=== PATIENT | female | born 1960 ===

== ENCOUNTER 2017-12-19 07:02 | Emergency (ER) | payer SELFPAY ==
[2017-12-19 07:24] VITALS: BMI 26.5
--- NOTE | 2017-12-19 07:41 | ED PDOC ---
HPI: Skin/Bite Injury Time Seen by Provider: 12/19/17 07:14 Chief Complaint (Nursing): Chest Pain Chief Complaint (Provider): Rash History Per: Patient History/Exam Limitations: no limitations Onset/Duration Of Symptoms: Days Current Symptoms Are (Timing): Still Present Location Of Injury: Left: Chest Quality Of Symptoms: Painful Additional Complaint(s): 57 year old female with a past medical history of diabetes presents to the ED for an evaluation of painful rash on left side of the chest onset Monday. Reports the pain began one day prior. She denies having a fever. PMD: Non [facility] Provider Past Medical History Reviewed: Historical Data, Nursing Documentation, Vital Signs Vital Signs: Last Vital Signs Temp 97.6 F 12/19/17 07:44 Pulse 70 12/19/17 07:44 Resp 19 12/19/17 07:43 BP 170/80 H 12/19/17 07:44 Pulse Ox 98 12/19/17 07:43 - Medical History PMH: Diabetes, HTN - Family History Family History: States: Unknown Family Hx - Social History Current smoker - smoking cessation education provided: No Alcohol: None Drugs: Denies - Home Medications Home Medications: Ambulatory Orders Medication Instructions Recorded Hydrochlorothiazide [HCTZ] 1 tab PO DAILY 10/13/14 Losartan Potassium [Losartan 1 tab PO DAILY 10/13/14 Potassium] MetFORMIN [glucoPHAGE] 1 tab PO BID 10/13/14 Valacyclovir HCl [Valtrex] 1 gm PO TID #30 tablet 12/19/17 traMADol [Ultram] 50 mg PO Q8 #10 tab 12/19/17 - Allergies Allergies/Adverse Reactions: Allergies Allergy/AdvReac Type Severity Reaction Status Date / Time No Known Allergies Allergy Verified 10/13/14 08:10 Review of Systems ROS Statement: Except As Marked, All Systems Reviewed And Found Negative Constitutional: Negative for: Fever Skin: Positive for: Rash Psych: Negative for: Suicidal ideation (homicidal ideation) Physical Exam - Reviewed Nursing Documentation Reviewed: Yes Vital Signs Reviewed: Yes - Physical Exam Appears: Positive for: Non-toxic, No Acute Distress Head Exam: Positive for: ATRAUMATIC, NORMAL INSPECTION, NORMOCEPHALIC Skin: Positive for: Rash (erythematous vesicular rash at various stages on left side of chest, left breast, lateral chest and not across midline ) Eye Exam: Positive for: Normal appearance Cardiovascular/Chest: Positive for: Regular Rate, Rhythm. Negative for: Murmur Respiratory: Positive for: Normal Breath Sounds. Negative for: Decreased Breath Sounds, Wheezing, Respiratory Distress Neurologic/Psych: Positive for: Alert, Oriented (x3). Negative for: Motor/ Sensory Deficits - ECG Pulse Ox Interpretation: Normal Medical Decision Making Medical Decision Making: Time: 713 Initial Impression: rash Initial Plan: --Reevaluation Clinical Impression: shingles Upon provider evaluation patient is medically stable, and requires no further treatment in the ED at this time. Patient will be discharged with Ultram 50mg and Valtrex 1gm for shingles. Counseling was provided and all questions were answered regarding diagnosis and need for follow up with [facility]. There is agreement to discharge plan. Return if symptoms persist or worsen. Scribe Attestation: Documented by Jelly Krishna, acting as a scribe for Simon Rascon MD Provider Scribe Attestation: All medical record entries made by the Scribe were at my direction and personally dictated by me. I have reviewed the chart and agree that the record accurately reflects my personal performance of the history, physical exam, medical decision making, and the department course for this patient. I have also personally directed, reviewed, and agree with the discharge instructions and disposition. Disposition - Clinical Impression Clinical Impression: Shingles - Patient ED Disposition Is Patient to be Admitted: No - Disposition Referrals: [facility] [Outside] Disposition: Routine/Home Disposition Time: 07:45 Condition: FAIR Additional Instructions: SOFIE TINEO, thank you for letting us take care of you today. Your provider was Simon Rascon MD and you were treated for CHEST PAIN. The emergency medical care you received today was directed at your acute symptoms. If you were prescribed any medication, please fill it and take as directed. It may take several days for your symptoms to resolve. Return to the Emergency Department if your symptoms worsen, do not improve, or if you have any other problems. Please contact your doctor or call one of the physicians/clinics you have been referred to that are listed on the Patient Visit Information form that is included in your discharge packet. Bring any paperwork you were given at discharge with you along with any medications you are taking to your follow up visit. Our treatment cannot replace ongoing medical care by a primary care provider outside of the emergency department. Thank you for allowing the [facility] team to be part of your care today. If you had an X-Ray or CT scan: A Radiologist will review the ED reading if any change in treatment is needed we will contact you. If you had a blood, urine, or wound culture: It will take several days for the results, if any change in treatment is needed we will contact you. If you had an STI test: It will take 48 hours for the results. Please call after 1 week if you have not heard back. Prescriptions: traMADol [Ultram] 50 mg PO Q8 #10 tab Valacyclovir HCl [Valtrex] 1 gm PO TID #30 tablet Instructions: Shingles Forms: [employer] (Malagasy) Print Language: NEPALI
[2017-12-19 07:44] VITALS: BP 170/80; RESP 19; O2SAT 98
[2017-12-19 07:48] VITALS: PULSE 70; TEMP 97.6
== END 2017-12-19 07:45 | disposition home or self-care (01) ==
LOC: H.ER 07:02
DX: B02.9 Zoster without complications (principal); E11.9 Type 2 diabetes mellitus without complications; I10 Essential (primary) hypertension; Z79.84 Long term (current) use of oral hypoglycemic drugs